=== PATIENT | female | born 1975 | race Caucasian/White ===

== ENCOUNTER 2018-08-06 22:31 | Emergency (ER) | payer OTHER ==
[~2018-08-06] VITALS: Ht 157.5 cm; Wt 56.7 kg
[2018-08-06] MEDS ORDERED: SYNTHROID75 MCG (22:50)
[2018-08-07] MEDS ORDERED: DOLOGESIC 500-1 EACH PO (03:26)
== END 2018-08-07 03:36 | disposition home or self-care (01) ==
LOC: ER 22:31
DX: R20.2 Paresthesia of skin (principal); M79.602 Pain in left arm; R51 Headache